=== PATIENT | female | born 1990 | race Caucasian/White ===

== ENCOUNTER 2018-05-23 00:36 | Inpatient (IN) | payer OTHER ==
[2018-05-23] MEDS ORDERED: LIDOCAINE 1% (MPF) 30 ML INJ INJ (02:00)
[2018-05-23] MEDS ORDERED: CARBOPROST 250 MCG INJ IM (02:00)
[2018-05-23] MEDS ORDERED: IBUPROFEN 600 MG TAB PO (02:00)
[2018-05-23] MEDS ORDERED: METHYLERGONOVINE 0.2 MG INJ IM (02:00)
[2018-05-23] MEDS ORDERED: BUTORPHANOL 2 MG INJ IV (02:00)
[2018-05-23] MEDS ORDERED: OXYCODONE/ASPIRIN (4.88/325) TAB PO (02:00)
[2018-05-23] MEDS ORDERED: MISOPROSTOL 200 MCG TAB PR (02:00)
[2018-05-23] MEDS ORDERED: OXYTOCIN 30 UNITS/LR 500 ML IV (02:00)
[2018-05-23] MEDS: LACTATED RINGER'S 1,000 ML IV* ×3 (03:41→19:33)
[2018-05-23 03:54] LABS: ADD MAN DIFF? NO
[2018-05-23 04:17] LABS: WHITE BLOOD COUNT 8.9 10^3/ul (4.8-10.8)
[2018-05-23 04:17] LABS: BASOPHILS % 0.3 % (0.0-2.0); EOSINOPHILS # 0.2 10^3/ul (0.0-0.5); EOSINOPHILS % 1.8 % (0.0-7.0); HEMATOCRIT 33.9 % (37.0-47.0); HEMOGLOBIN 11.7 g/dl (12.0-16.0); INR 0.89; LYMPHOCYTES # 1.9 10^3/ul (0.8-2.9); LYMPHOCYTES % 21.8 % (15.0-51.0); MEAN CORPUSCULAR HEMOGLOBIN 33.8 pg (29.0-33.0); MEAN CORPUSCULAR HGB CONC 34.5 g/dl (32.0-37.0); MEAN PLATELET VOLUME 11.4 fl (7.4-10.4); MONOCYTE # 0.6 10^3/ul (0.3-0.9); MONOCYTES % 6.4 % (0.0-11.0); NEUTROPHIL # 6.1 10^3/ul (1.6-7.5); NEUTROPHILS % 68.5 % (39.0-77.0); PLATELET COUNT 182 10^3/UL (140-415); PROTIME 12.1 Sec (11.9-14.9); PT RATIO 0.9; RED BLOOD COUNT 3.46 10^6/ul (4.20-5.40)
[2018-05-23 04:18] LABS: PARTIAL THROMBOPLASTIN TIME 25.8 Sec (25.0-35.0)
[2018-05-23] MEDS: MISOPROSTOL 25 MCG CAPSULE PO ×3 (04:55→13:27)
[2018-05-23 05:35] LABS: HEPATITIS B SURFACE ANTIGEN NEGATIVE (NEGATIVE)
[2018-05-23 15:01] LABS: RAPID PLASMA REAGIN NONREACTIVE (NR)
[2018-05-23] MEDS ORDERED: FENTAnyl 2MCG/ML-ROPIV 0.2% 100 ML BAG EPI (18:30)
[2018-05-23] MEDS ORDERED: ONDANSETRON 4 MG INJ IV (18:30)
[2018-05-23] MEDS ORDERED: NALOXONE (0.4 MG/ML) INJ IV (18:30)
[2018-05-23] MEDS ORDERED: DIPHENHYDRAMINE 50 MG INJ IV (18:30)
[2018-05-23] MEDS: OXYTOCIN 30 UNITS/LR 500 ML IV ×2 (20:45→23:27)
[2018-05-23] MEDS ORDERED: LACTATED RINGER'S 1,000 ML IV* (23:46)
[2018-05-24] MEDS ORDERED: NA PHOSPHATE/BIPHOS 133 ML ENEMA PR
[2018-05-24] MEDS ORDERED: WITCH HAZEL/GLYCERIN PAD PR
[2018-05-24] MEDS ORDERED: HYDROCODONE/APAP (5/325) TAB PO ×2
[2018-05-24] MEDS ORDERED: METHYLERGONOVINE 0.2 MG INJ IM
[2018-05-24] MEDS ORDERED: METHYLERGONOVINE 0.2 MG TAB PO
[2018-05-24] MEDS: AMPICILLIN 2 GM/NS (PMX) 100 ML IV
[2018-05-24] MEDS ORDERED: CARBOPROST 250 MCG INJ IM
[2018-05-24] MEDS ORDERED: DIPHENHYDRAMINE 25 MG CAP PO
[2018-05-24] MEDS ORDERED: MISOPROSTOL 200 MCG TAB PR
[2018-05-24] MEDS ORDERED: MAGNESIUM HYDROXIDE 30ML CUP PO
[2018-05-24] MEDS: CEFAZOLIN 1 GM/50 ML (PMX) 50 ML IV
[2018-05-24] MEDS ORDERED: ZOLPIDEM 5 MG TAB PO
[2018-05-24] MEDS ORDERED: BENZOCAINE 20% 56 ML SPRAY TOP
[2018-05-24] MEDS ORDERED: OXYTOCIN 30 UNITS/LR 500 ML IV
[2018-05-24] MEDS ORDERED: ONDANSETRON 4 MG INJ IV
[2018-05-24] MEDS: OXYTOCIN 30 UNITS/LR 500 ML IV (01:11)
[2018-05-24] MEDS: IBUPROFEN 600 MG TAB PO ×3 (02:52→23:28)
[2018-05-24 07:59] LABS: ADD MAN DIFF? NO
[2018-05-24 08:04] LABS: WHITE BLOOD COUNT 14.1 10^3/ul (4.8-10.8)
[2018-05-24 08:04] LABS: BASOPHILS % 0.1 % (0.0-2.0); EOSINOPHILS # 0.1 10^3/ul (0.0-0.5); EOSINOPHILS % 0.6 % (0.0-7.0); HEMOGLOBIN 9.7 g/dl (12.0-16.0); LYMPHOCYTES # 1.4 10^3/ul (0.8-2.9); LYMPHOCYTES % 10.1 % (15.0-51.0); MEAN CORPUSCULAR HEMOGLOBIN 33.2 pg (29.0-33.0); MEAN CORPUSCULAR HGB CONC 34.6 g/dl (32.0-37.0); MEAN CORPUSCULAR VOLUME 95.9 fl (82.0-101.0); MEAN PLATELET VOLUME 11.1 fl (7.4-10.4); MONOCYTES % 6.9 % (0.0-11.0); NEUTROPHIL # 11.5 10^3/ul (1.6-7.5); NEUTROPHILS % 81.6 % (39.0-77.0); PLATELET COUNT 161 10^3/UL (140-415); RED BLOOD COUNT 2.92 10^6/ul (4.20-5.40); RED CELL DISTRIBUTION WIDTH 11.9 % (11.5-14.5)
[2018-05-24] MEDS: SENNA/DOCUSATE NA (8.6MG/50MG) TAB PO ×2 (09:00→23:29)
[2018-05-25] MEDS: VARICELLA VACCINE LIVE/PF 1,350 UNIT/0.5 ML ML SC* (09:00)
[2018-05-25] MEDS: MEASLES,MUMPS,RUBELLA VACCINE INJ SC* (09:00)
[2018-05-25] MEDS: SENNA/DOCUSATE NA (8.6MG/50MG) TAB PO (10:14)
[2018-05-25] MEDS: LANOLIN 7 GM TUBE TOP (12:41)
[2018-05-25] MEDS: DIPHTH/TET/ACEL PERTUSS (ADULT) 0.5 ML VIAL IM* (14:23)
== END 2018-05-25 17:17 | disposition home or self-care (01) | DRG 775 ==
LOC: OBT 00:36 → PP1 05-24 02:11 → L-D 01:50
PROVIDERS: Obstetrics & Gynecology
PROC: 10E0XZZ Delivery of Products of Conception, External Approach (ICD-10-PCS; principal; 2018-05-23)
DX: O69.1XX0 Labor and delivery complicated by cord around neck, with compression, not applicable or unspecified (principal); O99.02 Anemia complicating childbirth; D50.9 Iron deficiency anemia, unspecified; Z3A.39 39 weeks gestation of pregnancy; Z37.0 Single live birth
CPT/HCPCS: 62319; 76815; 76818; 85025; 85610; 85730; 86592; 86850; 86900; 86901; 87340; 90715; 99464